=== PATIENT | male | born 1950 | race Caucasian/White ===

== ENCOUNTER 2023-02-13 11:42 | Observation (INO) | payer MEDICARE, OTHER ==
[2023-02-13 12:58] LABS: ALBUMIN 3.8 g/dL (3.2-5.5); BILIRUBIN,TOTAL 1.3 mg/dL (0.2-1.0); CREATININE 0.9 mg/dL (0.6-1.2); POTASSIUM 3.9 mmol/L (3.5-5.0); TOTAL PROTEIN 7.6 g/dL (6.7-8.2)
[2023-02-13 13:03] LABS: BASOPHILS % (AUTO) 0.3 %; HCT - HEMATOCRIT 42.5 % (42.0-52.0); HGB - HEMOGLOBIN 13.7 g/dL (14.0-18.0); LYMPHOCYTES % (AUTO) 2.7 %; MEAN CORPUSCULAR HEMOGLOBIN 30.4 pg (27.0-31.0); MEAN CORPUSCULAR HGB CONC 32.2 g/dL (32.0-36.0); MEAN CORPUSCULAR VOLUME 94.2 fL (80.0-94.0); MONOCYTES % (AUTO) 9.3 %; NEUTROPHILS % (AUTO) 86.9 %; PLT - PLATELET COUNT 201 10^3/uL (130-450); RED BLOOD COUNT 4.51 10^6/uL (4.70-6.10); RED CELL DISTRIBUTION WIDTH 13.8 % (12.0-15.0); WHITE BLOOD COUNT 21.8 x10^3/uL (4.8-10.8)
--- NOTE | 2023-02-13 13:13 | ED Physician Documentation ---
PD HPI ABD PAIN - Stated complaint Stated Complaint: LOW ABD PX, NAUSEA - Chief complaint Chief Complaint: Abd Pain - History obtained from History obtained from: Patient - History of Present Illness Timing - onset: Yesterday ( onset yesterday of RLQ pain, increased and consistent into today.) Timing - duration: Days (1) Timing - details: Gradual onset, Still present Quality: Cramping, Aching, Pain Location: RLQ Radiation: No: Right flank Improved by: Laying still Worsened by: Eating, Moving, Palpation Associated symptoms: Fever (chills with subjective fever this morning when awoke.), Nausea. No: Vomiting, Diarrhea, Dysuria, Chest pain Similar symptoms before: Has not had sx before Recently seen: Not recently seen Review of Systems Constitutional: reports: Chills, Myalgias Nose: denies: Rhinorrhea / runny nose, Congestion Throat: denies: Sore throat Respiratory: denies: Cough GI: reports: Abdominal Pain, Nausea. denies: Vomiting, Diarrhea : denies: Dysuria, Frequency Musculoskeletal: denies: Back pain PD PAST MEDICAL HISTORY - Past Medical History Cardiovascular: Hypertension Respiratory: None Neuro: CVA (on plavix) Endocrine/Autoimmune: None GI: None - Allergies Allergies/Adverse Reactions: Allergies Allergy/AdvReac Type Severity Reaction Status Date / Time No Known Drug Allergies Allergy Verified 02/13/23 12:11 - Living Situation Living Situation: reports: With spouse/s.o. Living Arrangement: reports: At home (visiting from [place].) PD ED PE NORMAL - Vitals Vital signs reviewed: Yes - General General: Alert and oriented X 3, Well developed/nourished, Other (appears in pain, sweaty, listless on my first exam. ) - Neck Neck: Supple, no meningeal sign, No adenopathy - Cardiac Cardiac: RRR, No murmur - Respiratory Respiratory: No respiratory distress, Clear bilaterally - Abdomen Abdomen: Soft, Non distended, No organomegaly. No: Normal bowel sounds (diminished) - Back Back: No CVA TTP - Derm Derm: No: Normal color (pale, mild sweaty.), Warm and dry - Extremities Extremities: No edema, No calf tenderness / cord - Neuro Neuro: Alert and oriented X 3, No motor deficit, Normal speech Results - Vitals Vitals: Vital Signs - 24 hr 05/02/13/23 02/13/23 12:05 14:02 15:30 Temperature 37.5 C Heart Rate 55 L 102 H 103 H Heart Rate [ Brachial] Respiratory 18 16 16 Rate Blood Pressure 135/52 H 143/79 H 153/83 H Blood Pressure [Right Brachial artery] O2 Saturation 93 95 91 L If not protocol : Oxygen Flow, liters/minute 02/13/23 02/13/23 02/13/23 17:25 17:30 17:35 Temperature 37.2 C 37.2 C 37.2 C Heart Rate 101 H 101 H 100 Heart Rate [ Brachial] Respiratory 18 18 19 Rate Blood Pressure 132/62 H 132/62 H 125/60 Blood Pressure [Right Brachial artery] O2 Saturation 98 98 98 If not protocol : Oxygen Flow, liters/minute 02/13/23 02/13/23 02/13/23 17:40 17:45 17:50 Temperature 37.2 C 37.2 C 37.2 C Heart Rate 98 98 96 Heart Rate [ Brachial] Respiratory 19 18 18 Rate Blood Pressure 128/60 117/51 L 117/64 Blood Pressure [Right Brachial artery] O2 Saturation 98 98 98 If not protocol : Oxygen Flow, liters/minute 02/13/23 02/13/23 02/13/23 17:55 18:00 18:05 Temperature 37.2 C 37.2 C 37.2 C Heart Rate 104 H 104 H 93 Heart Rate [ Brachial] Respiratory 18 18 14 Rate Blood Pressure 103/55 L 103/55 L 116/86 H Blood Pressure [Right Brachial artery] O2 Saturation 93 93 95 If not protocol : Oxygen Flow, liters/minute 02/13/23 02/13/23 02/13/23 18:10 18:15 18:30 Temperature 37.2 C 37.2 C 36.0 C L Heart Rate 92 92 Heart Rate [ 83 Brachial] Respiratory 14 20 16 Rate Blood Pressure 117/52 L 125/74 Blood Pressure 119/52 L [Right Brachial artery] O2 Saturation 97 97 94 If not protocol 3 : Oxygen Flow, liters/minute 02/13/23 19:00 Temperature Heart Rate Heart Rate [ 76 Brachial] Respiratory 18 Rate Blood Pressure Blood Pressure 112/52 L [Right Brachial artery] O2 Saturation 92 If not protocol 3 : Oxygen Flow, liters/minute Oxygen O2 Source Nasal cannula - Labs Labs: Laboratory Tests 02/13/23 02/13/23 02/13/23 12:25 12:25 13:10 WBC 21.8 H RBC 4.51 L Hgb 13.7 L Hct 42.5 MCV 94.2 H MCH 30.4 MCHC 32.2 RDW 13.8 Plt Count 201 MPV 12.0 H Neut # (Auto) Not Reportable Lymph # (Auto) Not Reportable Lyon # (Auto) Not Reportable Eos # (Auto) Not Reportable Baso # (Auto) Not Reportable Absolute Nucleated RBC Not Reportable Total Counted 100 Band Neuts % (Manual) 13 H Abnorm Lymph % (Manual) 0 Nucleated RBC % Not Reportable Neutrophils # (Manual) 19.4 H Lymphocytes # (Manual) 0.7 L Monocytes # (Manual) 1.7 H Eosinophils # (Manual) 0.0 Basophils # (Manual) 0.0 Differential Comment MANUAL DIFFERENTIAL Manual Slide Review Indicated WBC Morphology NORMAL APPEARANCE Platelet Estimate NORMAL (130-450,000) Platelet Morphology NORMAL APPEARANCE RBC Morph Micro Appear NORMAL APPEARANCE Sodium 139 Potassium 3.9 Chloride 105 Carbon Dioxide 28 Anion Gap 6.0 BUN 22 H Creatinine 0.9 Estimated GFR (MDRD) 83 L Glucose 138 H POC Whole Bld Glucose Calcium 9.0 Total Bilirubin 1.3 H AST 21 ALT 24 Alkaline Phosphatase 79 Total Protein 7.6 Albumin 3.8 Globulin 3.8 Albumin/Globulin Ratio 1.0 Lipase 33 Urine Color YELLOW Urine Clarity CLEAR Urine pH 6.0 Ur Specific [place] 1.025 Urine Protein NEGATIVE Urine Glucose (UA) NEGATIVE Urine Ketones NEGATIVE Urine Occult Blood NEGATIVE Urine Nitrite NEGATIVE Urine Bilirubin NEGATIVE Urine Urobilinogen 2 H Ur Leukocyte Esterase NEGATIVE Ur Microscopic Review NOT INDICATED Urine Culture Comments NOT INDICATED 02/13/23 19:10 WBC RBC Hgb Hct MCV MCH MCHC RDW Plt Count MPV Neut # (Auto) Lymph # (Auto) Lyon # (Auto) Eos # (Auto) Baso # (Auto) Absolute Nucleated RBC Total Counted Band Neuts % (Manual) Abnorm Lymph % (Manual) Nucleated RBC % Neutrophils # (Manual) Lymphocytes # (Manual) Monocytes # (Manual) Eosinophils # (Manual) Basophils # (Manual) Differential Comment Manual Slide Review WBC Morphology Platelet Estimate Platelet Morphology RBC Morph Micro Appear Sodium Potassium Chloride Carbon Dioxide Anion Gap BUN Creatinine Estimated GFR (MDRD) Glucose POC Whole Bld Glucose 130 H Calcium Total Bilirubin AST ALT Alkaline Phosphatase Total Protein Albumin Globulin Albumin/Globulin Ratio Lipase Urine Color Urine Clarity Urine pH Ur Specific [place] Urine Protein Urine Glucose (UA) Urine Ketones Urine Occult Blood Urine Nitrite Urine Bilirubin Urine Urobilinogen Ur Leukocyte Esterase Ur Microscopic Review Urine Culture Comments - Rads (name of study) abd/pelvic CT Relevant Findings:: Prelim report reviewed, EMP independent interpretation of test (enlarged appendix 12 mm width, with edema and fecolith. No perforation nor free fluid, no abscess. ), See rad report PD Medical Decision Making - ED course Complexity details: reviewed results (abd/pelvic CT showing appendicitis. COntacted Dr. Pierre, web content & social media manager for surgery, who will see pt in the ER. ), considered differential (onset RLQ pain yesterday with increase and persistence into today. Exam very concerning for appendicitis. Will give IV fludis/meds/pain meds, get labs and CT. ), d/w patient Departure - Departure Disposition: ED Transfer to [facility] Clinical Impression: RLQ abdominal pain Acute appendicitis Qualifiers: Acute appendicitis type: with localized peritonitis Appendicitis perforation presence: unspecified whether perforation present Appendicitis abscess presence: unspecified whether abscess present Condition: Stable Record reviewed to determine appropriate education?: Yes Discharge Date/Time: 02/13/23 15:59
[2023-02-13 13:19] LABS: ABNORMAL LYMPHS % (MANUAL) 0 %; SLIDE REVIEW? Indicated
[2023-02-13 13:21] LABS: BAND NEUTROPHILS % (MANUAL) 13 %; LYMPHOCYTES # (MANUAL) 0.7 10^3/uL (1.5-3.5); LYMPHOCYTES % (MANUAL) 3 %; MONOCYTES # (MANUAL) 1.7 10^3/uL (0.0-1.0); NEUTROPHILS # (MANUAL) 19.4 10^3/uL (1.5-6.6)
[2023-02-13 13:22] LABS: DIFFERENTIAL COMMENT MANUAL DIFFERENTIAL; PLATELET ESTIMATE, MANUAL NORMAL (130-450,000) (NORMAL); PLATELET MORPHOLOGY NORMAL APPEARANCE (NORMAL); RBC MORPHOLOGY (MULTIPLE) NORMAL APPEARANCE (NORMAL); WBC MORPHOLOGY (MULTIPLE) NORMAL APPEARANCE (NORMAL)
[2023-02-13 13:26] LABS: GLUCOSE, URINE (UA) NEGATIVE (NEGATIVE); KETONES,URINE (UA) NEGATIVE (NEGATIVE); LEUKOCYTE ESTERASE, URINE NEGATIVE (NEGATIVE); NITRITE,URINE NEGATIVE (NEGATIVE); OCCULT BLOOD,URINE NEGATIVE (NEGATIVE); PROTEIN,URINE NEGATIVE (NEGATIVE); UROBILINOGEN,URINE 2 E.U./dL (NORMAL)
[2023-02-13] MEDS ORDERED: ONDANSETRON 4 MG/2 ML VIAL IVP STA (13:27)
[2023-02-13] MEDS ORDERED: HYDROmorphone 1 MG/ML CARPUJECT IVP STA (13:27)
[2023-02-13] MEDS ORDERED: SODIUM CHLORIDE 0.9% 1,000 ML IV STA ×2 (13:27→14:04)
[2023-02-13 13:30] LABS: BILIRUBIN,URINE NEGATIVE (NEGATIVE); CLARITY,URINE CLEAR (CLEAR); ICTOTEST,URINE NEGATIVE
[2023-02-13] MEDS ORDERED: iohexoL-300 100 ML VIAL ONE (13:59)
[2023-02-13] MEDS ORDERED: cefTRIAXone 2 GM in SODIUM CHLORIDE 0.9% MINIBAG 100 ML IV STA (14:46)
[2023-02-13] MEDS ORDERED: SODIUM CHLORIDE FLUSH 0.9% 10 ML SYRINGE IVP PRN ×2 (14:48→17:25)
--- NOTE | 2023-02-13 14:57 | HISTORY & PHYSICAL EXAMINATION ---
Chief Complaint - Chief Complaint Chief Complaint: Abdominal pain History of Present Illness - Admitted From Admitted From:: ED - History Obtained From Records Reviewed: Yes History obtained from: Patient - History of Present Illness HPI Comment/Other: Segun and his are visiting [place] from [place], [place]. They left Monday and he felt a little quesy after eating a sub sandwich from [employer]. Yesterday he developed mild RLQ discomfort that persisted throughout the day as he celebrated a reunion with his family from [place]. He was jimbo to eat and drink OK, and even had a normal BM but he developed worsening pain in the RLQ of the abdomen that was associated with several episodes of nausea. He didn't sleep well last night and this morning the painw as worse. He was seen in the local Urgent Care center and sent to our facility where he was found to have a leukocytosis and CT evidence of acute appendicitis. Segun denies prior episodes of similar pain. He has been sweaty but denies fevers or nausea. He is on Plavix for a stroke which occurred several years ago. He has a FH of CAD. He denies cigarette smoking or drug use. Alcohol use is minimal. History - Past Medical History Cardiovascular: reports: Hypertension Respiratory: reports: None Neuro: reports: CVA (on plavix) Endocrine/Autoimmune: reports: None GI: reports: None : reports: Nocturia HEENT: reports: None Psych: reports: None Musculoskeletal: reports: None, Osteoporosis MRSA Hx?: No - Past Surgical History Ortho: reports: Other (Ankle surgery) HEENT: reports: Tonsil/Adenoidectomy - Family & Social History Family History: Father: CAD Living arrangement: At home Living Situation: With spouse/s.o. - Substance History Use: Uses substance without health or social issues: NONE - POLST Patient has POLST: Yes POLST Status: Full Code Meds/Allgy - Allergies Allergies/Adverse Reactions: Allergies Allergy/AdvReac Type Severity Reaction Status Date / Time No Known Drug Allergies Allergy Verified 02/13/23 12:11 Review of Systems - Constitutional Constitutional: reports: Fatigue, Chills, Diaphoresis - Gastrointestinal Gastrointestinal: reports: Abdominal pain Exam - Vital Signs Vital Signs: Vital Signs x48h Temp Pulse Resp BP Pulse Ox 02/13/23 14:02 102 H 16 143/79 H 95 02/13/23 12:05 99.5 F 55 L 18 135/52 H 93 - Physical Exam General Appearance: positive: Mild distress Eyes Bilateral: positive: Normal inspection, PERRL, EOMI ENT: positive: Pharynx nml Neck: positive: Nml inspection, Thyroid nml Respiratory: positive: Chest non-tender, No respiratory distress, Breath sounds nml Cardiovascular: positive: Regular rate & rhythm, No murmur Peripheral Pulses: positive: 2+ Abdomen: positive: Tenderness, Guarding (RLQ tenderness with guarding; No peritoneal signs), Other Skin: positive: Color nml, No rash, Warm Extremities: positive: Non-tender, Full ROM Neurologic/Psychiatric: positive: Oriented x3 Conclusion/Plan - Problem List (1) Acute appendicitis Conclusion/Plan: Assessment: Acute appendicitis Plan: 1) Admit for laparoscopic appendectomy, possible open appendectomy. The patient understands that he may have wound bruising due to the use of Plavix 2) IV Ceftriaxone/Flagyl 3) Pre-op EKG 4) NPO CONSENT: [facility] has been counseled for the procedure, it's indications, risks, benefits and expected outcome as well as alternative therapies. We specifically discussed risks associated with anesthesia, bleeding, infection, injury to surrounding structures which may require additional surgery, and the possible need for conversion to an open procedure. I recommend that the patient proceed with the procedure. [facility] understands, agrees, and consents to the proposed operative strategy and requests that we proceed with the procedure as outlined in our discussion. Farshad Pierre MD General Surgery Service Qualifiers: Acute appendicitis type: with localized peritonitis Appendicitis perforation presence: unspecified whether perforation present Appendicitis abscess presence: unspecified whether abscess present - Lab Results Fish Bones: 02/13/23 12:25 02/13/23 12:25 - Diagnostic Imaging Results Diagnostic Imaging Results: positive: Read contemporaneously Diagnostic Imaging Results Comments: CT ABD/PELVIS - dilated appendix with fecalith and judy-appendiceal inflammation. No evidence of abscess or phlegmon. - Official read pending. ASHLEE
[2023-02-13] MEDS ORDERED: LACTATED RINGERS 1,000 ML IV SCH ×2 (15:00→16:00)
[2023-02-13] MEDS ORDERED: cefTRIAXone 2 GM VIAL ONE (15:28)
[2023-02-13] MEDS ORDERED: metroNIDAZOLE 500 MG/100 ML 500 MG/100 ML BAG ONE (15:28)
[2023-02-13] MEDS ORDERED: PROPOFOL 200 MG/20 ML VIAL IVP ONE (15:30)
[2023-02-13] MEDS ORDERED: ROCURONIUM 50 MG/5 ML VIAL ONE (15:30)
[2023-02-13] MEDS ORDERED: MIDAZOLAM 2 MG/2 ML VIAL ONE (15:30)
[2023-02-13] MEDS ORDERED: fentaNYL 100 MCG/2 ML VIAL ONE ×2 (15:31→16:48)
--- NOTE | 2023-02-13 15:35 | ANESTHESIA ---
Pre-Anesthesia VS, & Labs - Diagnosis Acute appendicitis - Procedure lap appy Vital Signs: Temp Pulse Resp BP Pulse Ox O2 Flow Rate 37.5 C 102 H 16 143/79 H 95 02/13/23 12:05 02/13/23 14:02 02/13/23 14:02 02/13/23 14:02 02/13/23 14:02 Height: 5 ft 10 in Weight (kg): 147.418 kg Body Mass Index: 46.6 BMI Classification: Morbidly Obese - NPO >8 hours - Lab Results Current Lab Results: Laboratory Tests 02/13/23 12:25: Sodium 139, Potassium 3.9, Chloride 105, Carbon Dioxide 28, Anion Gap 6.0, BUN 22 H, Creatinine 0.9, Estimated GFR (MDRD) 83 L, Glucose 138 H, Calcium 9.0, Total Bilirubin 1.3 H, AST 21, ALT 24, Alkaline Phosphatase 79, Total Protein 7.6, Albumin 3.8, Globulin 3.8, Albumin/Globulin Ratio 1.0, Lipase 33 02/13/23 12:25: WBC 21.8 H, RBC 4.51 L, Hgb 13.7 L, Hct 42.5, MCV 94.2 H, MCH 30.4, MCHC 32.2, RDW 13.8, Plt Count 201, MPV 12.0 H, Neut # (Auto) Not Reportable, Lymph # (Auto) Not Reportable, [place] # (Auto) Not Reportable, Eos # (Auto) Not Reportable, Baso # (Auto) Not Reportable, Absolute Nucleated RBC Not Reportable, Total Counted 100, Band Neuts % (Manual) 13 H, Abnorm Lymph % (Manual) 0, Nucleated RBC % Not Reportable, Neutrophils # (Manual) 19.4 H, Lymphocytes # (Manual) 0.7 L, Monocytes # (Manual) 1.7 H, Eosinophils # (Manual) 0.0, Basophils # (Manual) 0.0, Differential Comment MANUAL DIFFERENTIAL, Manual Slide Review Indicated, WBC Morphology NORMAL APPEARANCE, Platelet Estimate NORMAL (130-450,000), Platelet Morphology NORMAL APPEARANCE, RBC Morph Micro Appear NORMAL APPEARANCE Fish Bones: 02/13/23 12:25 02/13/23 12:25 Home Medications and Allergies Active Medications Sodium Chloride (Normal Saline 0.9%) 1,000 mls @ 150 mls/hr IV .Q6H40M STA Stop: 02/13/23 20:43 Metronidazole (Flagyl 500 Mg/100 Ml) 500 mg in 100 mls @ 100 mls/hr IV Q8HR ALISIA Stop: 02/18/23 14:59 Lactated Ringer's (Lr) 1,000 mls @ 150 mls/hr IV .Q6H40M ALISIA Sodium Chloride (Sodium Chloride Flush 0.9% 10 Ml Syringe) 10 ml IVP 0100,0900,1700 ALISIA Sodium Chloride (Sodium Chloride Flush 0.9% 10 Ml Syringe) 10 ml IVP PRN PRN PRN Reason: NEEDED PER PROVIDER ORDERS Home meds: Plavix, lipitor, losartan Allergies/Adverse Reactions: Allergies Allergy/AdvReac Type Severity Reaction Status Date / Time No Known Drug Allergies Allergy Verified 02/13/23 12:11 Anes History & Medical History - Anesthetic History Anesthesia Complications: reports: No previous complications - Medical History Cardiovascular: reports: Hypertension Pulmonary: reports: None Gastrointestinal: reports: None Urinary: reports: Nocturia Neuro: reports: CVA (on plavix. No residual other than memory) Musculoskeletal: reports: None, Osteoporosis Endocrine/Autoimmune: reports: None Blood Disorders: reports: None Skin: reports: None Smoking Status: Never smoker Psychosocial: reports: No issues indicated History of Cancer?: No - Surgical History Eyes Ears Nose Throat (EENT): reports: Tonsil/Adenoidectomy Orthopedic: reports: Other (Ankle surgery) Exam General: Alert, Oriented x3, Cooperative, No acute distress Dental: WNL Mouth Openin Fingerbreadth Neck Mobility: Normal Mallampati classification: II Thyromental Distance: 4-6 cm Mental/Cognitive Status: Alert/Oriented X3, Normal for patient Plan Anesthesia Type: General Consent for Procedure(s) Verified and Reviewed: Yes Code Status: Attempt Resuscitation ASA classification: 3-Severe systemic disease Is this case an emergency?: Yes
--- NOTE | 2023-02-13 15:37 | CT Report ---
PROCEDURE: ABDOMEN/PELVIS W INDICATIONS: RLQ pain, likely appendicitis CONTRAST: 100ml Omnipaque - TECHNIQUE: After the administration of intravenous contrast, 5 mm thick sections acquired from the diaphragms to the symphysis. 5 mm thick coronal and sagittal reformats were acquired. For radiation dose reducti on, the following was used: automated exposure control, adjustment of mA and/or kV according to germaine ent size. COMPARISON: None FINDINGS: Image quality: Excellent. Lung bases and heart: Mild cardiomegaly and dense coronary artery calcification. No hiatal hernia. Liver: No solid mass. Gallbladder and biliary tree: Normal gallbladder and biliary tree. Spleen: No splenomegaly. Pancreas: No pancreatic ductal dilation. Adrenals: No adrenal nodule. Kidneys and ureters: No hydronephrosis. No renal cystic lesion which requires follow up. No solid mas s. Bowel and peritoneum: There is an appendicolith at the origin of the appendix. Demonstrates moderate periappendiceal inflammation and wall thickening. There is a focus of gas which likely remains within the appendix. No significant free intraperitoneal air. No associated fluid collection. Stomach and b owel loops are otherwise normal. Lymph nodes: No central or retroperitoneal adenopathy. Vessels: No infrarenal aortic aneurysm. PELVIS Reproductive organs: Unremarkable. Bladder: No abnormal wall thickening, accounting for underdistension. Pelvic lymph nodes: No pelvic adenopathy by size criteria. Bones: No aggressive osseous abnormality. Other: No significant ventral or inguinal hernia. IMPRESSION: 1. Findings of acute uncomplicated appendicitis. 2. Coronary artery calcification. Reviewed by: Kelly Hernandez MD on 02/13/2023 2:35 PM AKDT Approved by: Kelly Hernandez MD on 02/13/2023 2:35 PM AKDT Station ID: [id number]
[2023-02-13] MEDS ORDERED: ATROPINE ABBOJECT 1 MG/10 ML SYRINGE IVP PRN (15:39)
[2023-02-13] MEDS ORDERED: MORPHINE 2 MG/ML CARPUJECT IVP PRN (15:39)
[2023-02-13] MEDS ORDERED: ONDANSETRON 4 MG/2 ML VIAL IVP PRN (15:39)
[2023-02-13] MEDS ORDERED: NALOXONE 0.4 MG/ML VIAL IVP PRN (15:39)
[2023-02-13] MEDS ORDERED: fentaNYL 100 MCG/2 ML VIAL IVP PRN (15:39)
[2023-02-13] MEDS ORDERED: HYDROmorphone 0.5 MG/0.5 ML SYRINGE IVP PRN (15:39)
[2023-02-13] MEDS ORDERED: LIDOCAINE 2%-EPI 1:100000 20 ML MDV ONE (15:39)
[2023-02-13] MEDS ORDERED: BUPIVACAINE 0.25% PF 30 ML VIAL ONE (15:39)
[2023-02-13] MEDS ORDERED: iohexoL-300 100 ML VIAL IVP ONE (15:58)
[2023-02-13] MEDS ORDERED: DEXAMETHASONE 4 MG/ML VIAL ONE (16:19)
[2023-02-13] MEDS ORDERED: ACETAMINOPHEN 1,000 MG/100 ML 1,000 MG/100 ML BAG IV ONE (16:21)
[2023-02-13] MEDS ORDERED: LIDOCAINE 1%-EPI 1:100000 20 ML MDV SUBQ ONE ×2 (16:44)
[2023-02-13] MEDS ORDERED: BUPIVACAINE 0.25% PF 30 ML VIAL SUBQ ONE ×2 (16:45)
[2023-02-13] MEDS ORDERED: SODIUM CHLORIDE FLUSH 0.9% 10 ML SYRINGE IVP SCH (17:00)
[2023-02-13] MEDS ORDERED: SUGAMMADEX 200 MG/2 ML VIAL IVP ONE (17:05)
[2023-02-13] MEDS ORDERED: HYDROmorphone 1 MG/ML CARPUJECT ONE (17:14)
--- NOTE | 2023-02-13 17:23 | OPERATIVE REPORT ---
Operative Report - General Procedure Date: 02/13/23 - Other Other Information/Narrative: PREOPERATIVE DIAGNOSIS: Segun is a 72 year old male who has clinical, image, and laboratory findings consistent with acute appendicitis. Segun is being taken to the operating room for laparoscopic appendectomy, possible open appendectomy. POSTOPERATIVE DIAGNOSIS: Ruptured appendicitis NAME OF PROCEDURE: Laparoscopic appendectomy (07851) SURGEON: Patrick Pierre MD, FACS IRON ERECTOR: audio video technician ANESTHESIA: General endotracheal. ESTIMATED BLOOD LOSS: 5 mL. DRAINS: None SPECIMEN: Appendix COMPLICATIONS None FINDINGS: The appendix had a microperforation near the base; there was purulence in the RLQ and pelvis but no abscess. DESCRIPTION OF OPERATION: After consent for the procedure was obtained, the patient was brought to the operating room where in the supine position, general endotracheal anesthesia was administered. A surgical time-out was performed, indicating the patient and the procedure to be performed. The abdomen was prepped with chloroprep and draped in a sterile fashion. The subcutaneous tissue of each of the planned port sites was infiltrated with 1% Lidocaine with epinephrine in a 50/50 mix with 1/4 % Marcaine mixture. Pneumoperitoneum was achieved through a subumbilical incision using a Kash cannula and an open technique. Under direct vision, a 5 mm muscle splitting, non-cutting port was placed in the right lower quadrant and an 12 mm muscle splitting, non-cutting port was placed in the left lower quadrant. Inspection revealed the above findings. Placing the patient in Trendelenburg position slightly rolled to the left allowed mobilization of the right colon medially and visualization of the appendix. The appendix was gently grasped with a ratcheted grasper and retracted superiorly and anteriorly. The appendix and meso-appendix were dissected away from the abdominal wall and cecum. I then was able to take down the mesoappendix with a harmonic scalpel and find healthy tissue at the base of the appendix. The base of the appendix was stapled and transected flush with the cecum using an Endo-SIXTO stapling device using gastrointestinal naren. The appendix was then brought out through the left lower quadrant port site incision using an EndoCatch device. Reinspection of the right lower quadrant revealed no evidence of bleeding or leakage from the previous dissection site. The right lower quadrant and pelvis were irrigated with warm sterile saline until clear. The irrigant was aspirated. A LY drain was not placed as there was no abscess. A search was made for sponges, packs, instruments, and needles. None were found. The sponge, pack, instrument, and needle counts were relayed to me as being correct. The left lower quadrant port site was closed with a 2-0 Vicryl under direct vision using an endo-close device. The pneumoperitoneum then was released. There was no evidence of bleeding from the laparoscopic port sleeve sites upon release of the pneumoperitoneum. The subumbilical incision was closed with 2-0 Vicryl for the linea alba. The skin of each of the port sites was closed with interrupted 4-0 Monocryl in a subcuticular fashion with Steri-Strips to reinforce the epidermis. Dressings were placed. The patient tolerated the procedure well and was brought to the recovery room with stable vital signs. The presence of the pharmacy sales assistant was necessary to provide exposure, tissue retraction, to control the endoscopic videocamera, and to facilitate fascial and skin closure during various portions of the operative procedure.
[2023-02-13] MEDS ORDERED: LORazepam 2 MG/ML VIAL IVP PRN (17:25)
[2023-02-13] MEDS ORDERED: LACTATED RINGERS 100 ML IV ONE (17:25)
[2023-02-13] MEDS ORDERED: LACTATED RINGERS 1,000 ML IV ONE (17:44)
[2023-02-13] MEDS ORDERED: oxyCODONE 5 MG TABLET PO PRN (17:51)
[2023-02-13] MEDS ORDERED: KETOROLAC 15 MG/ML VIAL IVP SCH (18:00)
--- NOTE | 2023-02-13 18:16 | ANESTHESIA POST OP EVALUATION ---
Anesthesia Post Eval - Post Anesthesia Eval Vitals: Last Vital Signs Temp 37.2 C 02/13/23 18:10 Pulse 92 02/13/23 18:10 Resp 14 02/13/23 18:10 BP 117/52 L 02/13/23 18:10 Pulse Ox 97 02/13/23 18:10 O2 Flow Rate CV Function Including HR & BP: Stable Pain Control: Satisfactory Nausea & Vomiting: Negative Mental Status: Baseline Respiratory Status: Airway Patent Hydration Status: Satisfactory Anesthesia Complications: None
[2023-02-13] MEDS: metroNIDAZOLE 500 MG/100 ML 500 MG/100 ML BAG IV SCH ×2 (18:48→21:48)
[2023-02-13] MEDS: ACETAMINOPHEN 325 MG TABLET PO SCH ×2 (18:49→23:35)
[2023-02-13] MEDS: LACTATED RINGERS 1,000 ML IV SCH (18:52)
[2023-02-13] MEDS ORDERED: HEPARIN 5,000 UNIT/ML VIAL SUBQ SCH (21:00)
[2023-02-13] MEDS ORDERED: metroNIDAZOLE 500 MG/100 ML 500 MG/100 ML BAG IV SCH (22:00)
[2023-02-14] MEDS ORDERED: SODIUM CHLORIDE FLUSH 0.9% 10 ML SYRINGE IVP SCH (01:00)
[2023-02-14] MEDS: LACTATED RINGERS 1,000 ML IV SCH (02:02)
[2023-02-14 05:27] LABS: BASOPHILS # (AUTO) 0.1 10^3/uL (0.0-0.1); BASOPHILS % (AUTO) 0.3 %; HCT - HEMATOCRIT 37.5 % (42.0-52.0); HGB - HEMOGLOBIN 11.8 g/dL (14.0-18.0); LYMPHOCYTES # (AUTO) 0.8 10^3/uL (1.5-3.5); LYMPHOCYTES % (AUTO) 4.3 %; MEAN CORPUSCULAR HEMOGLOBIN 30.4 pg (27.0-31.0); MEAN CORPUSCULAR HGB CONC 31.5 g/dL (32.0-36.0); MEAN CORPUSCULAR VOLUME 96.6 fL (80.0-94.0); MEAN PLATELET VOLUME 11.8 fL (7.4-11.4); MONOCYTES # (AUTO) 1.4 10^3/uL (0.0-1.0); MONOCYTES % (AUTO) 7.4 %; NEUTROPHILS # (AUTO) 16.4 10^3/uL (1.5-6.6); NEUTROPHILS % (AUTO) 87.5 %; PLT - PLATELET COUNT 144 10^3/uL (130-450); RED BLOOD COUNT 3.88 10^6/uL (4.70-6.10); WHITE BLOOD COUNT 18.7 x10^3/uL (4.8-10.8)
[2023-02-14 05:36] LABS: CALCIUM 8.1 mg/dL (8.5-10.3); CREATININE 0.9 mg/dL (0.6-1.2); POTASSIUM 3.9 mmol/L (3.5-5.0)
[2023-02-14] MEDS: ACETAMINOPHEN 325 MG TABLET PO SCH ×2 (05:58→13:11)
[2023-02-14] MEDS: metroNIDAZOLE 500 MG/100 ML 500 MG/100 ML BAG IV SCH (05:58)
--- NOTE | 2023-02-14 06:22 | PROVIDER PROGRESS NOTE ---
Subjective - General Procedure Date: 02/13/23 Post Op Days: 1 Procedure Performed: Laparoscopic appendectomy - Review of Systems Wound/Incisions: positive: Dressing dry and intact General: positive: No symptoms HEENT: positive: No symptoms Pulmonary: positive: No symptoms Cardiovascular: positive: No symptoms Gastrointestinal: positive: Other (Mild port site discomfort but has not required anything for pain other than Tylenol) Genitourinary: positive: No symptoms Musculoskeletal: positive: No symptoms Skin: positive: No symptoms Psychiatric: positive: No symptoms - Other Other Information/Narrative: Pre-op pain has resolved Objective - Patient Data Reviewed Vital Signs: Yes Vital Signs: Vital Signs x48h Temp Pulse Resp BP Pulse Ox O2 Flow Rate 02/14/23 06:15 97.3 F L 58 L 12 105/65 96 2 02/14/23 01:34 97.5 F L 71 16 114/65 95 2 02/13/23 23:39 97.5 F L 70 20 119/71 93 2 Weight: Weight 02/12/23 02/13/23 02/14/23 23:59 23:59 23:59 Weight (kg) 147.418 kg Intake & Output: Intake and Output Totals x24h 02/12/23 02/13/23 02/14/23 23:59 23:59 23:59 Intake Total 1866.667 404.167 Balance 1866.667 404.167 - Lab Results Lab Results: 02/14/23 04:55 02/14/23 04:55 Other Lab Results: Lab Results x24hrs 02/14/23 02/14/23 02/13/23 Range/Units 04:55 04:55 19:10 WBC 18.7 H (4.8-10.8) x10^3/uL RBC 3.88 L (4.70-6.10) 10^6/uL Hgb 11.8 L (14.0-18.0) g/dL Hct 37.5 L (42.0-52.0) % MCV 96.6 H (80.0-94.0) fL MCH 30.4 (27.0-31.0) pg MCHC 31.5 L (32.0-36.0) g/dL RDW 14.0 (12.0-15.0) % Plt Count 144 (130-450) 10^3/uL MPV 11.8 H (7.4-11.4) fL Neut # (Auto) 16.4 H Lymph # (Auto) 0.8 L [place] # (Auto) 1.4 H Eos # (Auto) 0.0 Baso # (Auto) 0.1 Absolute Nucleated RBC 0.00 Total Counted Band Neuts % (Manual) (0 - 10) % Abnorm Lymph % (Manual) % Nucleated RBC % 0.0 Neutrophils # (Manual) (1.5-6.6) 10^3/uL Lymphocytes # (Manual) (1.5-3.5) 10^3/uL Monocytes # (Manual) (0.0-1.0) 10^3/uL Eosinophils # (Manual) (0-0.7) 10^3/uL Basophils # (Manual) (0-0.1) 10^3/uL Differential Comment Manual Slide Review WBC Morphology (NORMAL) Platelet Estimate (NORMAL) Platelet Morphology (NORMAL) RBC Morph Micro Appear (NORMAL) Sodium 138 (135-145) mmol/L Potassium 3.9 (3.5-5.0) mmol/L Chloride 104 (101-111) mmol/L Carbon Dioxide 27 (21-32) mmol/L Anion Gap 7.0 (6-13) BUN 29 H (6-20) mg/dL Creatinine 0.9 (0.6-1.2) mg/dL Estimated GFR (MDRD) 83 L (>89) Glucose 172 H (70-100) mg/dL POC Whole Bld Glucose 130 H (70 - 100) mg/dL Calcium 8.1 L (8.5-10.3) mg/dL Total Bilirubin (0.2-1.0) mg/dL AST (10-42) IU/L ALT (10-60) IU/L Alkaline Phosphatase (42-121) IU/L Total Protein (6.7-8.2) g/dL Albumin (3.2-5.5) g/dL Globulin (2.1-4.2) g/dL Albumin/Globulin Ratio (1.0-2.2) Lipase (22-51) U/L Urine Color Urine Clarity (CLEAR) Urine pH (5.0-7.5) PH Ur Specific [place] (1.002-1.030) Urine Protein (NEGATIVE) mg/dL Urine Glucose (UA) (NEGATIVE) mg/dL Urine Ketones (NEGATIVE) mg/dL Urine Occult Blood (NEGATIVE) Urine Nitrite (NEGATIVE) Urine Bilirubin (NEGATIVE) Urine Urobilinogen (NORMAL) E.U./dL Ur Leukocyte Esterase (NEGATIVE) Ur Microscopic Review Urine Culture Comments 02/13/23 02/13/23 02/13/23 Range/Units 13:10 12:25 12:25 WBC 21.8 H (4.8-10.8) x10^3/uL RBC 4.51 L (4.70-6.10) 10^6/uL Hgb 13.7 L (14.0-18.0) g/dL Hct 42.5 (42.0-52.0) % MCV 94.2 H (80.0-94.0) fL MCH 30.4 (27.0-31.0) pg MCHC 32.2 (32.0-36.0) g/dL RDW 13.8 (12.0-15.0) % Plt Count 201 (130-450) 10^3/uL MPV 12.0 H (7.4-11.4) fL Neut # (Auto) Not Reportable Lymph # (Auto) Not Reportable [place] # (Auto) Not Reportable Eos # (Auto) Not Reportable Baso # (Auto) Not Reportable Absolute Nucleated RBC Not Reportable Total Counted 100 Band Neuts % (Manual) 13 H (0 - 10) % Abnorm Lymph % (Manual) 0 % Nucleated RBC % Not Reportable Neutrophils # (Manual) 19.4 H (1.5-6.6) 10^3/uL Lymphocytes # (Manual) 0.7 L (1.5-3.5) 10^3/uL Monocytes # (Manual) 1.7 H (0.0-1.0) 10^3/uL Eosinophils # (Manual) 0.0 (0-0.7) 10^3/uL Basophils # (Manual) 0.0 (0-0.1) 10^3/uL Differential Comment MANUAL DIFFERENTIAL Manual Slide Review Indicated WBC Morphology NORMAL APPEARANCE (NORMAL) Platelet Estimate NORMAL (130-450,000) (NORMAL) Platelet Morphology NORMAL APPEARANCE (NORMAL) RBC Morph Micro Appear NORMAL APPEARANCE (NORMAL) Sodium 139 (135-145) mmol/L Potassium 3.9 (3.5-5.0) mmol/L Chloride 105 (101-111) mmol/L Carbon Dioxide 28 (21-32) mmol/L Anion Gap 6.0 (6-13) BUN 22 H (6-20) mg/dL Creatinine 0.9 (0.6-1.2) mg/dL Estimated GFR (MDRD) 83 L (>89) Glucose 138 H (70-100) mg/dL POC Whole Bld Glucose (70 - 100) mg/dL Calcium 9.0 (8.5-10.3) mg/dL Total Bilirubin 1.3 H (0.2-1.0) mg/dL AST 21 (10-42) IU/L ALT 24 (10-60) IU/L Alkaline Phosphatase 79 (42-121) IU/L Total Protein 7.6 (6.7-8.2) g/dL Albumin 3.8 (3.2-5.5) g/dL Globulin 3.8 (2.1-4.2) g/dL Albumin/Globulin Ratio 1.0 (1.0-2.2) Lipase 33 (22-51) U/L Urine Color YELLOW Urine Clarity CLEAR (CLEAR) Urine pH 6.0 (5.0-7.5) PH Ur Specific [place] 1.025 (1.002-1.030) Urine Protein NEGATIVE (NEGATIVE) mg/dL Urine Glucose (UA) NEGATIVE (NEGATIVE) mg/dL Urine Ketones NEGATIVE (NEGATIVE) mg/dL Urine Occult Blood NEGATIVE (NEGATIVE) Urine Nitrite NEGATIVE (NEGATIVE) Urine Bilirubin NEGATIVE (NEGATIVE) Urine Urobilinogen 2 H (NORMAL) E.U./dL Ur Leukocyte Esterase NEGATIVE (NEGATIVE) Ur Microscopic Review NOT INDICATED Urine Culture Comments NOT INDICATED - Current Medications Current Medications: Current Medications Generic Name Dose Route Start Last Admin Trade Name Freq PRN Reason Stop Dose Admin Acetaminophen 650 mg 02/13/23 18:00 02/14/23 05:58 Acetaminophen 325 Mg Tablet PO 650 mg Q6HR ALISIA Administration Heparin Sodium (Porcine) 5,000 unit 02/13/23 21:00 02/13/23 21:48 Heparin 5,000 Unit/Ml Vial SUBQ 5,000 unit BID ALISIA Administration Metronidazole 500 mg in 100 mls @ 100 mls/hr 02/13/23 15:00 02/14/23 05:58 Flagyl 500 Mg/100 Ml IV 02/18/23 14:59 100 mls/hr Q8HR ALISIA Administration Lactated Ringer's 1,000 mls @ 125 mls/hr 02/13/23 17:33 02/14/23 02:02 Lr IV 125 mls/hr .Q8H ALISIA Administration - Physical Exam Wound/Incisions: positive: Healing well, Dressing dry and intact General Appearance: positive: No acute distress, Alert Eyes Bilateral: positive: Normal inspection ENT: positive: ENT inspection nml Neck: positive: Nml inspection Respiratory: positive: Chest non-tender, Breath sounds nml Cardiovascular: positive: Regular rate & rhythm, No murmur Abdomen: positive: Nml bowel sounds, No distention, Other (Port sites clean and dry) Skin: positive: Color nml, Warm Extremities: positive: Non-tender, Full ROM Neurologic/Psychiatric: positive: Oriented x3 Impression/Plan - Problem List Problem List: Assessment: 1) No immediate post-op issues. Tolerated clears yesterday, has ambulated, and has urinated. [facility] home to [place], [place]. Plan: 1) Advance diet as tolerated 2) Continue IV Ceftriaxone and Flagyl until discharge, then oral AB for 3-4 days 3) IV to saline lock when tolerating PO well 4) Start Plavix and Losartan this morning 5) Ketorolac has been stopped. Stop SQ Heparin and continue SCDs 6) Re-evaluate after lunch and if no issues, discharge at that time. Farshad Pierre MD General Surgery Service
[2023-02-14] MEDS ORDERED: CLOPIDOGREL 75 MG TABLET PO SCH (09:00)
[2023-02-14] MEDS ORDERED: cefTRIAXone 2 GM in SODIUM CHLORIDE 0.9% MINIBAG 100 ML IV SCH (09:00)
[2023-02-14] MEDS ORDERED: LOSARTAN 50 MG TABLET PO SCH (09:00)
--- NOTE | 2023-02-14 10:49 | PHARMACY PROGRESS NOTE ---
- Best Possible Medication History Admit Date and Time: 02/13/23 1448 Processed by: Pharmacy Medication History completed: Yes Patient Interview: Completed Secondary Source(s): Spouse/Significant other, Pharmacy records (spoke to ), Insurance records As the person ultimately responsible for medication therapy, providers are able to order a medication from an existing home medication list in [facility] via the "Reconcile Routine" prior to Confirmation of that medication by support manager. Such practice is discouraged except when the physician, in their clinical judgment, deems that a medical need exists for a medication without regard to p revious use.
[2023-02-14 12:50] VITALS: BP 115/71
--- NOTE | 2023-02-14 14:36 | PROVIDER PROGRESS NOTE ---
Progress Note General Surgery Progress Note Segun has had an uneventful morning. His pain is under good control with oral Tylenol; He is ambulatory and urinating without issue. He is on a general diet. He would like to go home. His VS are stable; Port sites are clean and dry A: Ready for discharge P: Discharge to home on oral Tylenol and Cipro/Flagyl for 4 days; FU PCP in 7- 10 days; he has his have been informed that ruptured appendicitis sometimes results in the formation of an intra-abdominal abscess later in the recovery process and that he should seek medical attention if he develops fever, chills, abdominal pain, or diarrhea Farshad Pierre MD General Surgery Service
--- NOTE | 2023-02-14 14:38 | DISCHARGE SUMMARY ---
"Discharge Summary Admit Date: 02/13/23 Discharge Date: 02/14/23 Discharging Provider: Farshad Pierre MD Code Status: Attempt Resuscitation Condition at Discharge: Good Discharge Disposition: 01 Home, Self Care - DIAGNOSES Admission Diagnoses: Ruptured appendicitis - HPI History of Present Illness: Segun and his are visiting [place] from [place], [place]. They left Monday and he felt a little quesy after eating a sub sandwich from [facility]. Yesterday he developed mild RLQ discomfort that persisted throughout the day as he celebrated a reunion with his family from [place]. He was jimbo to eat and drink OK, and even had a normal BM but he developed worsening pain in the RLQ of the abdomen that was associated with several episodes of nausea. He didn't sleep well last night and this morning the painw as worse. He was seen in the local Urgent Care center and sent to our facility where he was found to have a leukocytosis and CT evidence of acute appendicitis. - CONSULTS | PROCEDURES Consultations: None Procedures: Laparoscopic appendectomy - HOSPITAL COURSE Hospital Course: Uncomplicated hospital course. At the time of discharge, he was tolerating a general diet, ambulating, able to pass urine, and with his pain under control with Tylenol. - ALLERGIES Allergies/Adverse Reactions: Allergies Allergy/AdvReac Type Severity Reaction Status Date / Time No Known Drug Allergies Allergy Verified 02/13/23 12:11 - MEDICATIONS Home Medications: Ambulatory Orders Medication Instructions Recorded Confirmed Atorvastatin Calcium [Lipitor] 1 tab PO HS 02/14/23 02/14/23 B6/Folic/B12/Coffee/Phosphatid 1 cap PO DAILY 02/14/23 02/14/23 [Neuriva Plus Brain Perform Cap] Clopidogrel [Plavix] 1 tab PO DAILY 02/14/23 02/14/23 Losartan [Cozaar] 1 tab PO DAILY 02/14/23 02/14/23 Multivitamin with Minerals 1 tab PO DAILY 02/14/23 02/14/23 [Multivitamins with Minerals] Vit A/Vit C/Vit E/Zinc/Copper 1 cap PO BID 02/14/23 02/14/23 [Preservision Areds Softgel] Home Medications Other | Comments: Patient discharged on 4 days of: Cipro 500 mg PO BID Flagyl 500 mg PO TID Tylenol 650 mg PO QID - PHYSICAL EXAM AT DISCHARGE General Appearance: positive: No acute distress, Alert Eyes Bilateral: positive: Normal inspection ENT: positive: ENT inspection nml Neck: positive: Nml inspection Respiratory: positive: Breath sounds nml Cardiovascular: positive: Regular rate & rhythm Peripheral Pulses: positive: 2+ Abdomen: positive: Non-tender Skin: positive: Color nml Neurologic/Psychiatric: positive: Oriented x3 - LABS Result Diagrams: 02/14/23 04:55 02/14/23 04:55 - DIAGNOSTIC IMAGING Diagnostic Imaging Results: See rad report - QUALITY (Female Hip Fx Only) Was patient sent home on osteoporosis medication?: No - FOLLOW UP Follow Up: Follow-up with his PCP in [place], [place] in 7-10 days"
--- NOTE | 2023-02-14 14:46 | Discharge Plan ---
Discharge Plan Problem Reviewed?: Yes Disposition: Home, Self Care Condition: Good Prescriptions: Acetaminophen [Tylenol] 650 mg PO Q6HR #120 tab metroNIDAZOLE 500 MG/100 ML [Flagyl 500 mg/100 ml] 500 mg PO Q8HR 4 Days each Ciprofloxacin HCl [Cipro] 500 mg PO BID 4 Days #8 tablet Diet: Regular Activity Restrictions: Activity as Tolerated Shower Restrictions: Yes (May shower later today or tomorrow) Driving Restrictions: Yes (No driving until tomorrow) Additional Instructions or Follow Up instructions: Follow up with your primary care provider in 7-10 days Diet as tolerated Activity; may shower later today or tomorrow. Replace the bandaids after the shower to protect the port sites from your clothing for a couple days. Medications: Us all usual medications and: Cipro 500 mg PO twice a day for 4 days Flagyl 500 mg PO 3 x a day for 4 days Tylenol 650 mg PO 4 x a day for 4 days No Smoking: If you smoke, Please STOP! Call for help.
== END 2023-02-14 15:16 | disposition home or self-care (01) ==
LOC: ED 11:42 → SDS 14:47 → MS2 14:48
PROVIDERS: ADMIT Surgery; ATTEND Surgery
PROC: 0DTJ4ZZ Resection of Appendix, Percutaneous Endoscopic Approach (ICD-10-PCS; principal; 2023-02-13 15:30)
DX: K35.32 Acute appendicitis with perforation, localized peritonitis, and gangrene, without abscess (principal); Z86.73 Personal history of transient ischemic attack (TIA), and cerebral infarction without residual deficits; Z79.02 Long term (current) use of antithrombotics/antiplatelets; I10 Essential (primary) hypertension; E66.01 Morbid (severe) obesity due to excess calories; Z68.42 Body mass index [BMI] 45.0-49.9, adult
CPT/HCPCS: 36415; 44970; 74177; 80048; 80053; 81003; 83690; 85025; 93005; 96365; 96366; 96367; 96372; 96375; 99284; 99285; A9270; J0131; J1170; J7120; Q9967; 81001; 87086